=== PATIENT | male | born 1945 | race Caucasian/White ===

== ENCOUNTER 2017-04-10 14:44 | Emergency (ER) | payer MEDICARE ==
[~2017-04-10] VITALS: Ht 182.9 cm; Wt 97.5 kg
[~2017-04-10 14:44] MED LIST: ALBU90OI INH; ALBUTEROL; CEPH500 PO; CYCL10 PO; HYDACE10B PO; HYDACE5325 PO; IBUP600 PO; LIDO2L MM; MECL12.5 PO; NAPR500 PO; OMEP20ER PO; PANT40 PO; RANI150 PO; Robaxin-750750 MG PO; SUCR1 PO; TIOT18 IH; TOLN1TC TOP; Ventolin/Prove6.7 GM INH
[2017-04-10] MEDS ORDERED: Norco 5-325 Ta1 EACH PO (15:05)
== END 2017-04-10 15:09 | disposition home or self-care (01) ==
LOC: ER 14:44
DX: M54.10 Radiculopathy, site unspecified (principal); Z79.899 Other long term (current) drug therapy; J44.9 Chronic obstructive pulmonary disease, unspecified; Z87.891 Personal history of nicotine dependence
CPT/HCPCS: 99282

== ENCOUNTER 2018-10-20 21:27 | Emergency (ER) | payer MEDICARE ==
[~2018-10-20] VITALS: Ht 182.9 cm; Wt 94.3 kg
[~2018-10-20 21:27] MED LIST changes: +Norco 5-325 Ta1 EACH PO
[2018-10-20] MEDS ORDERED: [UNRECOGNIZED DRUG - REMARK] (22:13)
[2018-10-20] MEDS ORDERED: ACETAMINOPHEN500 MG PO (22:59)
== END 2018-10-20 23:06 | disposition home or self-care (01) ==
LOC: ER 21:27
DX: M54.6 Pain in thoracic spine (principal); Z87.891 Personal history of nicotine dependence; J44.9 Chronic obstructive pulmonary disease, unspecified; Z79.899 Other long term (current) drug therapy
CPT/HCPCS: 36415; 72070; 84484; 85379; 96372; 99283-25; J1885

== ENCOUNTER 2019-05-24 19:44 | Day surgery (SDC) | payer OTHER, MEDICARE ==
[~2019-05-24] VITALS: Ht 182.9 cm; Wt 86.6 kg
[~2019-05-24 19:44] MED LIST changes: +ACETAMINOPHEN500 MG PO; +[UNRECOGNIZED DRUG - REMARK]
[2019-05-24] MEDS ORDERED: ALBU90OI INH (19:49)
[2019-05-24 20:20] LABS: BASOPHILS ABSOLUTE AUTO 0.08 K/mm3 (0.00-0.23); BASOPHILS PERCENT AUTO 1 % (0-2); EOSINOPHILS ABSOLUTE AUTO 0.19 K/mm3 (0.00-0.68); EOSINOPHILS PERCENT AUTO 2 % (0-6); Hematocrit 61.5 % (37.0-53.0); Hemoglobin 20.2 g/dL (13.5-17.5); IMMATURE GRAN ABSOLUTE AUTO 0.03 K/mm3 (0.00-0.10); IMMATURE GRAN PERCENT AUTO 0 % (0-1); LYMPHOCYTES ABSOLUTE AUTO 1.02 K/mm3 (0.84-5.20); LYMPHOCYTES PERCENT AUTO 10 % (21-46); MONOCYTES ABSOLUTE AUTO 0.91 K/mm3 (0.16-1.47); MONOCYTES PERCENT AUTO 9 % (4-13); Mean Corpuscular HGB 31.3 pg (26.0-34.0); Mean Corpuscular HGB Conc 32.8 g/dL (31.5-36.5); Mean Corpuscular Volume 95 fL (80-100); Mean Platelet Volume 10.8 fL (9.1-12.4); NEUTROPHILS ABSOLUTE AUTO 8.07 K/mm3 (1.96-9.15); NEUTROPHILS PERCENT AUTO 78 % (41-73); Platelet Count 179 K/mm3 (150-400); RDW Coefficient Variation 13.4 % (11.7-14.2); RDW Standard Deviation 47.8 fL (35.1-46.3); Red Blood Cell Count 6.46 M/mm3 (4.30-5.90)
[2019-05-24 20:32] LABS: Alanine Aminotransfer (ALT/SGP 30 U/L (12-78); Albumin, Blood 4.1 g/dL (3.4-5.0); Albumin/Globulin Ratio 0.9 (0.8-1.8); Alk Phos 81 U/L (50-136); Anion Gap 5 mmol/L (6-16); Aspartate Aminotrans (AST/SGOT 39 U/L (12-37); Bilirubin, Total 2.4 mg/dL (0.1-1.0); Blood Urea Nitrogen 21 mg/dL (8-24); Bun/Creatinine Ratio 21.8 (12.0-20.0); CO2, Blood 25 mmol/L (21-32); Calcium, Blood 9.3 mg/dL (8.5-10.1); Chloride, Blood 106 mmol/L (98-108); Creatinine, Blood 0.96 mg/dL (0.60-1.20); Globulin, Blood 4.6 g/dL (2.2-4.0); Glomerular Filtration Rate >60 (60-); Glucose, Blood 74 mg/dL (70-99); Potassium, Blood 5.6 mmol/L (3.5-5.5); Sodium, Blood 136 mmol/L (136-145); Total Protein, Blood 8.7 g/dL (6.4-8.2)
--- NOTE | 2019-05-24 22:22 | NUR ---
05/24/192221 MJ THOMAS History, Chart, Medications and Allergies reviewed before start of procedure. 3-LEAD EKG REVIEWED WITH PHYSICIAN PRIOR TO START OF PROCEDURE. MONITOR INTACT WITH CONTINUOUS PULSE OXIMETRY AND INTERMITTENT BP. O2 VIA N/C INTACT THROUGHOUT SEDATION/PROCEDURE. GENERAL WITH DR. DESAI.
--- NOTE | 2019-05-24 23:27 | NUR ---
DR. MEZA CONSULTING WITH PT.
--- NOTE | 2019-05-25 00:06 | NUR ---
[id number] Patient up to Ambulate independently. Gait steady. Discharge instructions reviewed with patient. Patient verbalizes understanding. Copy given to patient to take home. Discharged via wheelchair to private car for ride home.
== END 2019-05-24 23:57 | disposition home or self-care (01) ==
LOC: ER 19:44 → ORSCMMR 21:48
PROVIDERS: Emergency Medicine; Internal Medicine Gastroenterology
PROC: 0DC58ZZ Extirpation of Matter from Esophagus, Via Natural or Artificial Opening Endoscopic (ICD-10-PCS; principal; 2019-05-24 21:30)
PROC: 0D758ZZ Dilation of Esophagus, Via Natural or Artificial Opening Endoscopic (ICD-10-PCS; principal; 2019-05-24 21:30)
DX: T18.128A Food in esophagus causing other injury, initial encounter (principal); K22.2 Esophageal obstruction; K44.9 Diaphragmatic hernia without obstruction or gangrene; K25.9 Gastric ulcer, unspecified as acute or chronic, without hemorrhage or perforation; K26.9 Duodenal ulcer, unspecified as acute or chronic, without hemorrhage or perforation; K21.9 Gastro-esophageal reflux disease without esophagitis; G47.33 Obstructive sleep apnea (adult) (pediatric); J44.9 Chronic obstructive pulmonary disease, unspecified; Z99.81 Dependence on supplemental oxygen
CPT/HCPCS: 80053; 85025; 93005; 93010; 99284-25; J1100; J2370; J2405; J2704; J2710; J3010; J7120

== ENCOUNTER 2019-10-17 20:51 | Inpatient (IN) | payer OTHER, MEDICARE ==
[~2019-10-17] VITALS: Ht 182.9 cm; Wt 88.6 kg
[2019-10-17 21:28] LABS: BASOPHILS ABSOLUTE AUTO 0.07 K/mm3 (0.00-0.23); BASOPHILS PERCENT AUTO 1 % (0-2); EOSINOPHILS ABSOLUTE AUTO 0.27 K/mm3 (0.00-0.68); EOSINOPHILS PERCENT AUTO 4 % (0-6); Hematocrit 50.9 % (37.0-53.0); Hemoglobin 16.4 g/dL (13.5-17.5); IMMATURE GRAN ABSOLUTE AUTO 0.01 K/mm3 (0.00-0.10); IMMATURE GRAN PERCENT AUTO 0 % (0-1); LYMPHOCYTES ABSOLUTE AUTO 0.94 K/mm3 (0.84-5.20); LYMPHOCYTES PERCENT AUTO 13 % (21-46); MONOCYTES ABSOLUTE AUTO 0.77 K/mm3 (0.16-1.47); MONOCYTES PERCENT AUTO 11 % (4-13); Mean Corpuscular HGB 31.7 pg (26.0-34.0); Mean Corpuscular HGB Conc 32.2 g/dL (31.5-36.5); Mean Corpuscular Volume 99 fL (80-100); Mean Platelet Volume 11.5 fL (9.1-12.4); NEUTROPHILS ABSOLUTE AUTO 4.99 K/mm3 (1.96-9.15); NEUTROPHILS PERCENT AUTO 71 % (41-73); Platelet Count 116 K/mm3 (150-400); RDW Coefficient Variation 14.7 % (11.7-14.2); RDW Standard Deviation 54.4 fL (35.1-46.3); Red Blood Cell Count 5.17 M/mm3 (4.30-5.90); White Blood Cell Count 7.05 K/mm3 (4.00-11.30)
[2019-10-17 21:46] LABS: Alanine Aminotransfer (ALT/SGP 31 U/L (12-78); Albumin, Blood 3.4 g/dL (3.4-5.0); Albumin/Globulin Ratio 0.8 (0.8-1.8); Alk Phos 144 U/L (50-136); Anion Gap 8 mmol/L (6-16); Aspartate Aminotrans (AST/SGOT 44 U/L (12-37); Bilirubin, Total 1.9 mg/dL (0.1-1.0); Blood Urea Nitrogen 18 mg/dL (8-24); Bun/Creatinine Ratio 15.3 (12.0-20.0); CO2, Blood 20 mmol/L (21-32); Calcium, Blood 8.5 mg/dL (8.5-10.1); Chloride, Blood 113 mmol/L (98-108); Creatinine, Blood 1.18 mg/dL (0.60-1.20); Globulin, Blood 4.2 g/dL (2.2-4.0); Glomerular Filtration Rate >60 (60-); Glucose, Blood 88 mg/dL (70-99); Potassium, Blood 4.6 mmol/L (3.5-5.5); Sodium, Blood 141 mmol/L (136-145); Total Protein, Blood 7.6 g/dL (6.4-8.2); Troponin I <0.015 ng/mL (0.000-0.040)
[2019-10-17] MEDS ORDERED: BUDE.25 INH (22:48)
[2019-10-17] MEDS ORDERED: Vitamin D2000 UNIT PO (22:48)
[2019-10-17] MEDS ORDERED: ALBU3IS INH (22:48)
[2019-10-17] MEDS ORDERED: ALBU90OI INH (22:48)
[2019-10-17] MEDS ORDERED: CLARISPRAY9.9 M1 (22:49)
[2019-10-17] MEDS ORDERED: Q-Tussin100 MG/5 M (22:49)
[2019-10-17] MEDS ORDERED: HYDCOR10 PO (22:50)
[2019-10-17] MEDS ORDERED: FURO40 PO (22:50)
[2019-10-17] MEDS ORDERED: GABA300 PO (22:50)
[2019-10-17] MEDS ORDERED: Flomax0.4 MG PO (22:51)
[2019-10-17] MEDS ORDERED: ASMANEX220 MC8 INH (22:51)
[2019-10-17] MEDS ORDERED: Norco 5-325 Ta1 EACH PO (23:30)
[2019-10-18 05:19] LABS: Anion Gap 7 mmol/L (6-16); Blood Urea Nitrogen 18 mg/dL (8-24); Bun/Creatinine Ratio 15.3 (12.0-20.0); CO2, Blood 24 mmol/L (21-32); Calcium, Blood 8.4 mg/dL (8.5-10.1); Chloride, Blood 112 mmol/L (98-108); Creatinine, Blood 1.18 mg/dL (0.60-1.20); Glomerular Filtration Rate >60 (60-); Glucose, Blood 98 mg/dL (70-99); Potassium, Blood 3.9 mmol/L (3.5-5.5); Sodium, Blood 143 mmol/L (136-145)
[2019-10-18] MEDS ORDERED: Norco 10-325 T1 EACH PO (11:03)
[2019-10-18] MEDS ORDERED: STRIVERDI RESPIM4 G1 INH (11:05)
[2019-10-19 11:13] LABS: Anion Gap 3 mmol/L (6-16); Blood Urea Nitrogen 15 mg/dL (8-24); Bun/Creatinine Ratio 13.3 (12.0-20.0); CO2, Blood 33 mmol/L (21-32); Calcium, Blood 9.1 mg/dL (8.5-10.1); Chloride, Blood 104 mmol/L (98-108); Creatinine, Blood 1.13 mg/dL (0.60-1.20); Glomerular Filtration Rate >60 (60-); Glucose, Blood 124 mg/dL (70-99); Potassium, Blood 3.9 mmol/L (3.5-5.5); Sodium, Blood 140 mmol/L (136-145)
[2019-10-20 05:27] LABS: Anion Gap 6 mmol/L (6-16); Blood Urea Nitrogen 17 mg/dL (8-24); Bun/Creatinine Ratio 16.8 (12.0-20.0); CO2, Blood 30 mmol/L (21-32); Calcium, Blood 8.6 mg/dL (8.5-10.1); Chloride, Blood 104 mmol/L (98-108); Creatinine, Blood 1.01 mg/dL (0.60-1.20); Glomerular Filtration Rate >60 (60-); Glucose, Blood 110 mg/dL (70-99); Potassium, Blood 3.6 mmol/L (3.5-5.5); Sodium, Blood 140 mmol/L (136-145)
[2019-10-20] MEDS ORDERED: Q-Tussin100 MG/5 M PO (10:56)
[2019-10-20] MEDS ORDERED: TORSE20 PO (14:36)
== END 2019-10-20 14:48 | disposition home or self-care (01) | DRG 291 ==
LOC: ER 20:51 → MEDS 23:23
PROVIDERS: Hospitalist; Physician Assistant; ADMIT Internal Medicine
DX: I11.0 Hypertensive heart disease with heart failure (principal); J96.21 Acute and chronic respiratory failure with hypoxia; I50.31 Acute diastolic (congestive) heart failure; R18.8 Other ascites; J84.9 Interstitial pulmonary disease, unspecified; Z20.828 Contact with and (suspected) exposure to other viral communicable diseases; G47.33 Obstructive sleep apnea (adult) (pediatric); I07.1 Rheumatic tricuspid insufficiency; I27.20 Pulmonary hypertension, unspecified; J44.9 Chronic obstructive pulmonary disease, unspecified; K21.9 Gastro-esophageal reflux disease without esophagitis; Z87.891 Personal history of nicotine dependence; Z99.81 Dependence on supplemental oxygen; Z66 Do not resuscitate
CPT/HCPCS: 36415; 71045; 71260; 80048; 80053; 83880; 84484; 85025; 93005; 93010; 93306; 94640; 94660; 94760; 94762; 96374; 99285-25; J1650; J1940; Q9967

== ENCOUNTER 2020-03-29 11:05 | Emergency (ER) | payer OTHER, MEDICARE ==
[~2020-03-29] VITALS: Ht 182.9 cm; Wt 91.2 kg
[~2020-03-29 11:05] MED LIST changes: +AZIT250 PO; +BUDE.25 INH; +FURO40 PO; +GABA300 PO; +HYDCOR10 PO; +Q-Tussin100 MG/5 M; +Q-Tussin100 MG/5 M PO; +TORSE20 PO
[2020-03-29 11:35] LABS: BASOPHILS ABSOLUTE AUTO 0.07 K/mm3 (0.00-0.23); BASOPHILS PERCENT AUTO 1 % (0-2); EOSINOPHILS ABSOLUTE AUTO 0.24 K/mm3 (0.00-0.68); EOSINOPHILS PERCENT AUTO 3 % (0-6); Hematocrit 49.2 % (37.0-53.0); Hemoglobin 15.5 g/dL (13.5-17.5); IMMATURE GRAN ABSOLUTE AUTO 0.04 K/mm3 (0.00-0.10); IMMATURE GRAN PERCENT AUTO 1 % (0-1); LYMPHOCYTES ABSOLUTE AUTO 0.86 K/mm3 (0.84-5.20); LYMPHOCYTES PERCENT AUTO 11 % (21-46); MONOCYTES PERCENT AUTO 11 % (4-13); Mean Corpuscular HGB 32.6 pg (26.0-34.0); Mean Corpuscular HGB Conc 31.5 g/dL (31.5-36.5); Mean Corpuscular Volume 104 fL (80-100); Mean Platelet Volume 10.9 fL (9.1-12.4); NEUTROPHILS ABSOLUTE AUTO 5.88 K/mm3 (1.96-9.15); NEUTROPHILS PERCENT AUTO 74 % (41-73); Platelet Count 111 K/mm3 (150-400); RDW Coefficient Variation 14.8 % (11.7-14.2); RDW Standard Deviation 57.8 fL (35.1-46.3); Red Blood Cell Count 4.75 M/mm3 (4.30-5.90); White Blood Cell Count 7.99 K/mm3 (4.00-11.30)
[2020-03-29 11:52] LABS: Alanine Aminotransfer (ALT/SGP 21 U/L (12-78); Albumin, Blood 3.2 g/dL (3.4-5.0); Albumin/Globulin Ratio 0.7 (0.8-1.8); Alk Phos 200 U/L (50-136); Anion Gap 7 mmol/L (6-16); Aspartate Aminotrans (AST/SGOT 36 U/L (12-37); Bilirubin, Total 2.8 mg/dL (0.1-1.0); Blood Urea Nitrogen 18 mg/dL (8-24); Bun/Creatinine Ratio 17.5 (12.0-20.0); CO2, Blood 25 mmol/L (21-32); Chloride, Blood 111 mmol/L (98-108); Creatinine, Blood 1.03 mg/dL (0.60-1.20); Globulin, Blood 4.3 g/dL (2.2-4.0); Glomerular Filtration Rate >60 (60-); Glucose, Blood 80 mg/dL (70-99); Potassium, Blood 4.9 mmol/L (3.5-5.5); Sodium, Blood 143 mmol/L (136-145); Total Protein, Blood 7.5 g/dL (6.4-8.2); Troponin I <0.015 ng/mL (0.000-0.040)
[2020-06-26] MEDS ORDERED: VITAMIN D31000 UNI1 PO (14:10)
[2020-06-26] MEDS ORDERED: Viagra100 MG PO (14:11)
== END 2020-03-29 14:04 | disposition home or self-care (01) ==
LOC: ER 11:05
PROVIDERS: Emergency Medicine
DX: R06.00 Dyspnea, unspecified (principal); J44.9 Chronic obstructive pulmonary disease, unspecified; I50.9 Heart failure, unspecified; Z79.899 Other long term (current) drug therapy; Z87.891 Personal history of nicotine dependence
CPT/HCPCS: 71046; 80053; 83880; 84484; 85025; 93005; 93010; 99285-25

== ENCOUNTER 2020-05-02 18:06 | Inpatient (IN) | payer OTHER, MEDICARE ==
[~2020-05-02] VITALS: Ht 182.9 cm; Wt 83.1 kg
[2020-05-02 18:40] LABS: PCO2 Arterial 33.6 mmHg (35-45); PO2 Arterial 58.7 mmHg (80-100); pH Blood Arterial 7.46 (7.35-7.45)
[2020-05-02 18:52] LABS: BASOPHILS ABSOLUTE AUTO 0.07 K/mm3 (0.00-0.23); BASOPHILS PERCENT AUTO 1 % (0-2); EOSINOPHILS ABSOLUTE AUTO 0.28 K/mm3 (0.00-0.68); EOSINOPHILS PERCENT AUTO 3 % (0-6); Hematocrit 45.7 % (37.0-53.0); Hemoglobin 14.6 g/dL (13.5-17.5); IMMATURE GRAN ABSOLUTE AUTO 0.03 K/mm3 (0.00-0.10); IMMATURE GRAN PERCENT AUTO 0 % (0-1); LYMPHOCYTES ABSOLUTE AUTO 0.83 K/mm3 (0.84-5.20); LYMPHOCYTES PERCENT AUTO 9 % (21-46); MONOCYTES ABSOLUTE AUTO 1.19 K/mm3 (0.16-1.47); MONOCYTES PERCENT AUTO 13 % (4-13); Mean Corpuscular HGB 32.8 pg (26.0-34.0); Mean Corpuscular HGB Conc 31.9 g/dL (31.5-36.5); Mean Corpuscular Volume 103 fL (80-100); Mean Platelet Volume 10.8 fL (9.1-12.4); NEUTROPHILS ABSOLUTE AUTO 7.07 K/mm3 (1.96-9.15); NEUTROPHILS PERCENT AUTO 75 % (41-73); Platelet Count 159 K/mm3 (150-400); Red Blood Cell Count 4.45 M/mm3 (4.30-5.90); White Blood Cell Count 9.47 K/mm3 (4.00-11.30)
[2020-05-02 19:01] LABS: Alanine Aminotransfer (ALT/SGP 26 U/L (12-78); Albumin, Blood 3.3 g/dL (3.4-5.0); Albumin/Globulin Ratio 0.8 (0.8-1.8); Alk Phos 251 U/L (50-136); Anion Gap 4 mmol/L (6-16); Aspartate Aminotrans (AST/SGOT 27 U/L (12-37); Bilirubin, Total 3.1 mg/dL (0.1-1.0); Blood Urea Nitrogen 15 mg/dL (8-24); Bun/Creatinine Ratio 15.3 (12.0-20.0); CO2, Blood 28 mmol/L (21-32); Calcium, Blood 8.6 mg/dL (8.5-10.1); Chloride, Blood 109 mmol/L (98-108); Creatinine, Blood 0.98 mg/dL (0.60-1.20); Globulin, Blood 4.3 g/dL (2.2-4.0); Glomerular Filtration Rate >60 (60-); Glucose, Blood 68 mg/dL (70-99); Potassium, Blood 4.2 mmol/L (3.5-5.5); Sodium, Blood 141 mmol/L (136-145); Total Protein, Blood 7.6 g/dL (6.4-8.2); Troponin I <0.015 ng/mL (0.000-0.040)
[2020-05-02] MEDS ORDERED: ATHLETE'S FOO35.4 GM TOP (20:42)
[2020-05-02] MEDS ORDERED: Norco 10-325 T1 EACH PO (20:43)
[2020-05-02] MEDS ORDERED: GUAI600T33 PO (20:46)
[2020-05-02] MEDS ORDERED: ALBU2.5V5 NEB (20:47)
[2020-05-02] MEDS ORDERED: ALBU90OI INH (20:48)
[2020-05-02] MEDS ORDERED: ASMANEX220 MC8 INH (20:48)
[2020-05-02] MEDS ORDERED: STIOLTO RESPIMAT4 G1 INH (20:49)
[2020-05-02] MEDS ORDERED: TORSE20 PO (20:50)
[2020-05-02] MEDS ORDERED: CLARISPRAY9.9 M1 (20:51)
[2020-05-02] MEDS ORDERED: Vitamin D2000 UNIT PO (20:51)
[2020-05-02] MEDS ORDERED: Flomax0.4 MG PO (20:53)
[2020-05-02] MEDS ORDERED: Viagra100 MG PO (20:53)
[2020-05-02 22:29] LABS: Influenza A, PCR NEGATIVE (NEGATIVE); Influenza B, PCR NEGATIVE (NEGATIVE); Resp Syncytial Virus, PCR NEGATIVE (NEGATIVE); SARS-Cov-2 (COVID-19) PCR, MMC NEGATIVE (NEGATIVE)
[2020-05-03 04:08] LABS: BASOPHILS ABSOLUTE AUTO 0.05 K/mm3 (0.00-0.23); BASOPHILS PERCENT AUTO 1 % (0-2); EOSINOPHILS PERCENT AUTO 4 % (0-6); Hematocrit 42.2 % (37.0-53.0); Hemoglobin 13.5 g/dL (13.5-17.5); IMMATURE GRAN ABSOLUTE AUTO 0.02 K/mm3 (0.00-0.10); IMMATURE GRAN PERCENT AUTO 0 % (0-1); LYMPHOCYTES ABSOLUTE AUTO 0.84 K/mm3 (0.84-5.20); LYMPHOCYTES PERCENT AUTO 10 % (21-46); MONOCYTES PERCENT AUTO 15 % (4-13); Mean Corpuscular Volume 100 fL (80-100); NEUTROPHILS ABSOLUTE AUTO 5.78 K/mm3 (1.96-9.15); NEUTROPHILS PERCENT AUTO 71 % (41-73); Platelet Count 142 K/mm3 (150-400); RDW Coefficient Variation 15.1 % (11.7-14.2); RDW Standard Deviation 55.6 fL (35.1-46.3); Red Blood Cell Count 4.22 M/mm3 (4.30-5.90); White Blood Cell Count 8.19 K/mm3 (4.00-11.30)
[2020-05-03 04:23] LABS: Anion Gap 5 mmol/L (6-16); Blood Urea Nitrogen 14 mg/dL (8-24); Bun/Creatinine Ratio 13.1 (12.0-20.0); CO2, Blood 30 mmol/L (21-32); Calcium, Blood 8.4 mg/dL (8.5-10.1); Chloride, Blood 107 mmol/L (98-108); Creatinine, Blood 1.07 mg/dL (0.60-1.20); Glomerular Filtration Rate >60 (60-); Glucose, Blood 83 mg/dL (70-99); Potassium, Blood 3.9 mmol/L (3.5-5.5); Sodium, Blood 142 mmol/L (136-145)
--- NOTE | 2020-05-03 06:12 | NUR ---
SHIFT SUMMARY PT TO UNIT FROM ED. AXO. IN SR 80'S. LUNG SOUNDS CLEAR WITH SOME MOIST SOUNDS SCATTERED AND FAINT. PT RECEIVED LARGE DOSE OF DIURETICS IN [facility], URINE OUTPUT SUPPORTS THIS. PT ON HOME CPAP, TO MAINTAIN SPO2>90%, 02 INFLOW EVENTUALLY HAD TO BE TITRATED UP TO 15L. NO CHANGE IN LUNG SOUNDS NOTED. NO INCREASED SOB OR OTHER WORRYING S/SX. RT AWARE. PT CONTINENT. ADMISSION COMPLETE EXCEPT MED REC, PT UNAWARE OF MEDICATIONS. BILAT LEGS EDEMATOUS, REDNESS EXTENDING FROM FEET TO LOWER ABD. EDEMA NOTED ALL THE WAY UP INTO LOWER BACK. PT STATES THIS IS STARTING TO IMPROVE SLOWLY, STATES RESPIRATORY STATUS HAS MUCH IMPROVED SINCE COMING FROM [facility]. OTHERWISE, PT USING CALL LIGHT APPROPIATELY. WILL CONTINUE TO MONITOR UNTIL SHIUFT CHANGE.
--- NOTE | 2020-05-03 11:43 | NUR ---
Spoke with Dr Hastings and Dr Culp prior to Pt visit. Pt would benefit from supportive visit and discussion regarding AD/POLST. Pt resting in bed and reports mild pain in his lower back. Pt reports dyspnea has improved since being admitted to hospital. Pt reports living at home with his daughter. Daughter is supportive of needs. Engaged in therapeutic discussion regarding the importance of considering competing AD/POLST. Educated on life sustaining measures including risk factors and implications. Educated on each section to complete. Provided gentle education on the importance of compliance with medications. Gentle education on the importance of weighing self each day. Provided AD and POLST with Pt reporting he will consider completing. No other concerns reported at this time. Palliative Care will remain available.
[2020-05-03 15:16] LABS: Anion Gap 7 mmol/L (6-16); Blood Urea Nitrogen 16 mg/dL (8-24); Bun/Creatinine Ratio 13.6 (12.0-20.0); CO2, Blood 31 mmol/L (21-32); Calcium, Blood 8.5 mg/dL (8.5-10.1); Chloride, Blood 101 mmol/L (98-108); Creatinine, Blood 1.18 mg/dL (0.60-1.20); Glomerular Filtration Rate >60 (60-); Glucose, Blood 106 mg/dL (70-99); Magnesium, Blood 2.2 mg/dL (1.6-2.4); Potassium, Blood 3.5 mmol/L (3.5-5.5); Sodium, Blood 139 mmol/L (136-145)
--- NOTE | 2020-05-03 18:39 | NUR ---
SHIFT SUMMARY NO ACUTE EVENTS THIS SHIFT, PATIENT ALERT AND ORIENTED, COOPERATIVE WITH CARE. PATIENT ON 5 L NASAL CANNULA T/O SHIFT, O2 SATS MAINTAINING LOW 90S, WILL DROP TO MID-HIGH 80S WITH EXTENDED TALKING OR WHILE EATING. PATIENT COUGHED WHEN EATING DINNER TONIGHT, MECHANICAL SOFT TRAY PROVIDED TO PATIENT. STANDING WEIGHT AND 1500 L FLUID RESTRICTION FOLLOWED THIS SHIFT. SBA TO BEDSIDE COMMODE. PLAN IS FOR CONTINUED IV DIURESIS. BLE EDEMA AND REDNESS NOTED.
[2020-05-04 04:32] LABS: Anion Gap 7 mmol/L (6-16); Blood Urea Nitrogen 19 mg/dL (8-24); CO2, Blood 30 mmol/L (21-32); Calcium, Blood 8.2 mg/dL (8.5-10.1); Chloride, Blood 102 mmol/L (98-108); Creatinine, Blood 1.12 mg/dL (0.60-1.20); Glomerular Filtration Rate >60 (60-); Glucose, Blood 99 mg/dL (70-99); Potassium, Blood 3.4 mmol/L (3.5-5.5); Sodium, Blood 139 mmol/L (136-145)
--- NOTE | 2020-05-04 05:23 | NUR ---
SHIFT SUMMARY NO ACUTE CHANGES THIS SHIFT. VSS WITH STABLE HOTN. PT AXO, IN SR. ON 4-6L NC. PT HAS POOR PERFUSION TO HANDS SO FOREHEAD PROBE BEING USED NOW FOR ACCURATE SO2 CONTINUOUS MONITORING. PT REMAINING WITHIN 1500ML FLUID RESTRICTION. PT VOIDING LARGE AMOUNTS STILL. OTHERWISE, PT RESTING OFF AND ON IN ROOM. USES CALL LIGHT APPROPRIATELY. WILL CONTINUE TO MONITOR UNTIL SHIFT CHANGE.
--- NOTE | 2020-05-04 18:16 | NUR ---
SHIFT SUMMARY NO ACUTE EVENTS THIS SHIFT, VSS. PATIENT IS ALERT AND ORIENTED, COOPERATIVE WITH CARE. IV DIURESIS CONTINUED THIS SHIFT, STANDING WEIGHT DOCUMENTED IN CHART. PATIENT UP WITH PT/OT. ON 4-6 L THIS SHIFT, MAINTAINED O2 SATS IN 90S EXCEPT FOR DURING NAPS APNEIC BREATHING PATTERN NOTED WITH O2 SATURATION DROP TO 80S. WHEN AWAKENED PATIENT WOULD RETURN TO 90S O2 SAT. IV DIURESIS CONTINUED THIS SHIFT.
[2020-05-05 04:15] LABS: Anion Gap 6 mmol/L (6-16); Blood Urea Nitrogen 19 mg/dL (8-24); Bun/Creatinine Ratio 17.8 (12.0-20.0); CO2, Blood 32 mmol/L (21-32); Calcium, Blood 8.1 mg/dL (8.5-10.1); Chloride, Blood 100 mmol/L (98-108); Creatinine, Blood 1.07 mg/dL (0.60-1.20); Glomerular Filtration Rate >60 (60-); Glucose, Blood 90 mg/dL (70-99); Potassium, Blood 3.6 mmol/L (3.5-5.5); Sodium, Blood 138 mmol/L (136-145)
--- NOTE | 2020-05-05 05:48 | NUR ---
SHIFT SUMMARY NO ACUTE CHANGES THIS SHIFT. VSS. REMAINS AXO. IN SR. ON 4-6L OR CPAP. PT REMAINS WITHIN 1500ML FLUID RESTRICTION. LEGS CONTINUE TO SHOW DECREASING EDEMA BILATERALLY. LUNG SOUNDS CLEAR T/O WITH SOME UPPER LOBE EXP WHEEZING NOTED. OTHERWISE, PT IN ROOM SLEEPING OFF AND ON. WILL CONTINUE TO MONITOR UNTIL SHIFT CHAGE.
--- NOTE | 2020-05-05 18:03 | NUR ---
SHIFT SUMMARY PT ALERT AND ORIENTED. VS STABLE. O2 SATS HAVE REMAINED ABOVE 90% AND O2 TITRATED TO 4L WHICH IS HIS BASELINE. BP STABLE. HR NSR. PT DENIES ANY PAIN. PT ABLE TO AMBULATE IN HIS ROOM INDEPENDENTLY. WILL CONTINUE TO MONITOR AND REPORT TO ONCOMING RN. CALL LIGHT IN REACH.
--- NOTE | 2020-05-05 20:01 | NUR ---
ASSUMED CARE PT IS ALERT AND ORIENTED. VITALS ARE STABLE. SATS >92% AT 4L NC. DENIES PAIN AND SOB. PT TALIKING ON PHONE. URINAL AND CALL LIGHT AT BESIDE. WILL CONTINUE TO MONITOR.
[2020-05-06 04:21] LABS: Anion Gap 4 mmol/L (6-16); Blood Urea Nitrogen 17 mg/dL (8-24); Bun/Creatinine Ratio 16.3 (12.0-20.0); CO2, Blood 34 mmol/L (21-32); Calcium, Blood 8.6 mg/dL (8.5-10.1); Chloride, Blood 100 mmol/L (98-108); Creatinine, Blood 1.04 mg/dL (0.60-1.20); Glomerular Filtration Rate >60 (60-); Glucose, Blood 95 mg/dL (70-99); Magnesium, Blood 2.1 mg/dL (1.6-2.4); Potassium, Blood 3.6 mmol/L (3.5-5.5); Sodium, Blood 138 mmol/L (136-145)
--- NOTE | 2020-05-06 07:17 | NUR ---
PT ALERT AND ORIENTED. NO ACUTE CHANGES; ADLIB IN ROOM. 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 USES URINAL IN THE BEDSIDE. PT ON 4L NC WITH SATS OF >92%.
--- NOTE | 2020-05-06 08:00 | NUR ---
pt laying in bed awake a/ox3, pleasant and cooperative with care, follows commands well, denies complaints of pain, lungs are dim in bases with some wheezing noted t/o, resp even and unlabored, no cough noted, is currently on 6 liters 02 via n/c, is a home o2 user on 4 liters at all times, hrr, tele in place running sr per monitor, see strip, trace edema noted to b/l le, ppp faint, cap refill <3sec, vs stable, afebrile, iv site is clear and patent, btx4, abd flat soft nontender, voids benigno clear urine via urinal, skin c/w/d, but is red and very dry to b/l alexandr medellin, call light in reach.
[2020-05-06] MEDS ORDERED: DOK100 M2 PO (16:16)
[2020-05-06] MEDS ORDERED: BUME2 PO (16:21)
--- NOTE | 2020-05-06 16:43 | NUR ---
PT HAS BEEN DISCHARGED TO HOME, NEW MEDICATION FAXED TO [facility], AND ENOUGH MEDS TO GET THROUGH THE WEEKEND WAS CALLED INTO [facility] IN [place], IV REMOVED INTACT, O2 WAS BROUGHT TO ROOM AND JP WILL MEET HIM AT HIS HOUSE FOR INCREASED 02 NEEDS. WENT OVER DISCHARGE INSTRUCTIONS, HE VERBALIZED UNDERSTANDING. LEFT VIA WHEELCHAIR WITH GATEKEEPER IN ATTENDENC WITH ALL HIS BELONGINGS.
[2020-06-26] MEDS ORDERED: VITAMIN D31000 UNI1 PO (14:10)
[2020-06-26] MEDS ORDERED: Viagra100 MG PO (14:11)
== END 2020-05-06 16:34 | disposition home or self-care (01) | DRG 291 ==
LOC: ER 18:06 → PCU 18:07 → ERHOLD 18:07 → PCU 23:00
PROVIDERS: Emergency Medicine; Family Medicine; Nurse Practitioner Acute Care; ADMIT Internal Medicine
PROC: 5A09357 Assistance with Respiratory Ventilation, Less than 24 Consecutive Hours, Continuous Positive Airway Pressure (ICD-10-PCS; principal; 2020-05-03)
DX: I11.0 Hypertensive heart disease with heart failure (principal); J96.21 Acute and chronic respiratory failure with hypoxia; J44.9 Chronic obstructive pulmonary disease, unspecified; Z91.19 Patient's noncompliance with other medical treatment and regimen; I50.33 Acute on chronic diastolic (congestive) heart failure; E87.6 Hypokalemia; K21.9 Gastro-esophageal reflux disease without esophagitis; I87.2 Venous insufficiency (chronic) (peripheral); Z79.899 Other long term (current) drug therapy; Z99.81 Dependence on supplemental oxygen; G47.33 Obstructive sleep apnea (adult) (pediatric); Z98.890 Other specified postprocedural states; Z87.891 Personal history of nicotine dependence; Z20.822 Contact with and (suspected) exposure to COVID-19
CPT/HCPCS: 0241U; 36415; 36600; 71045; 71046; 80048; 80053; 82803; 83735; 83880; 84484; 85025; 93005; 93010; 94640; 94644; 94667; 94668; 94760; 94761; 94762; 96372; 96374; 97110; 97116; 97129; 97130; 97162; 97165; 97530; 99285-25; A9270; G0378; J1650

== ENCOUNTER 2020-07-19 22:36 | Emergency (ER) | payer OTHER, MEDICARE ==
[~2020-07-19] VITALS: Ht 182.9 cm; Wt 77.1 kg
[~2020-07-19 22:36] MED LIST changes: +ALBU2.5V5 NEB; +ASMANEX220 MC8 INH; +ATHLETE'S FOO35.4 GM TOP; +BUME2 PO; +CLARISPRAY9.9 M1; +DOK100 M2 PO; +Flomax0.4 MG PO; +GUAI600T33 PO; +Norco 10-325 T1 EACH PO; +STIOLTO RESPIMAT4 G1 INH; +VITAMIN D31000 UNI1 PO; +Viagra100 MG PO; +Vitamin D2000 UNIT PO
[2020-07-20] MEDS ORDERED: FURO20 (01:15)
== END 2020-07-20 02:25 | disposition home or self-care (01) ==
LOC: ER 22:36
DX: R13.10 Dysphagia, unspecified (principal); J44.9 Chronic obstructive pulmonary disease, unspecified; I50.9 Heart failure, unspecified; K21.9 Gastro-esophageal reflux disease without esophagitis; Z79.899 Other long term (current) drug therapy; Z87.891 Personal history of nicotine dependence
CPT/HCPCS: 99283

== ENCOUNTER 2020-07-20 16:03 | Emergency (ER) | payer OTHER, MEDICARE ==
[~2020-07-20] VITALS: Ht 182.9 cm; Wt 76.2 kg
[~2020-07-20 16:03] MED LIST changes: +FURO20
--- NOTE | 2020-07-20 20:11 | NUR ---
07/20/202010 Victor Hugo Ansari History, Chart, Medications and Allergies reviewed before start of procedure.MONITOR INTACT WITH CONTINUOUS PULSE OXIMETRY AND INTERMITTENT BP.3-LEAD EKG REVIEWED WITH PHYSICIAN PRIOR TO START OF PROCEDURE.O2 VIA N/C INTACT THROUGHOUT SEDATION/PROCEDURE. See Anesthesia record DR. DOLAN.
[2020-07-20 20:27] LABS: SARS-Cov-2 (COVID-19) PCR, MMC NEGATIVE (NEGATIVE)
--- NOTE | 2020-07-20 21:23 | NUR ---
Patient up to Ambulate independently. Gait steady. Discharge instructions reviewed with patient. Patient verbalizes understanding. Copy given to patient to take home. Spoke with Rosenda, friend. Reviewed discharge instructions with her. Patient States Post-Procedure ride home has been arranged with Rosenda Discharged via wheelchair to private car for ride home.
== END 2020-07-20 19:20 | disposition other institution (70) ==
LOC: ER 16:03
PROVIDERS: Physician Assistant
DX: T17.228A Food in pharynx causing other injury, initial encounter (principal); I50.9 Heart failure, unspecified; K21.9 Gastro-esophageal reflux disease without esophagitis; Z87.19 Personal history of other diseases of the digestive system; Z20.822 Contact with and (suspected) exposure to COVID-19; Z87.891 Personal history of nicotine dependence
CPT/HCPCS: 88305; 88342; 96374-59; 99284-25; J1610; J2704; J7120; U0004

== ENCOUNTER 2020-08-06 17:28 | Emergency (ER) | payer OTHER, MEDICARE ==
[~2020-08-06] VITALS: Ht 182.9 cm; Wt 72.6 kg
== END 2020-08-07 00:29 | disposition home or self-care (01) ==
LOC: ER 17:28
DX: T18.128A Food in esophagus causing other injury, initial encounter (principal); J44.9 Chronic obstructive pulmonary disease, unspecified; I50.9 Heart failure, unspecified; K21.9 Gastro-esophageal reflux disease without esophagitis; Z79.899 Other long term (current) drug therapy; Z87.891 Personal history of nicotine dependence
CPT/HCPCS: 99283

== ENCOUNTER 2020-08-11 11:50 | Day surgery (SDC) | payer OTHER ==
[~2020-08-11] VITALS: Ht 182.9 cm; Wt 83.2 kg
--- NOTE | 2020-08-11 12:39 | NUR ---
08/11/20 Janie Baldwin 1 TRY RIGHT UPPER ARM NO FLASH
== END 2020-08-11 14:12 | disposition home or self-care (01) ==
LOC: ORSCSDS 11:50
PROVIDERS: Internal Medicine Gastroenterology
PROC: 0D758ZZ Dilation of Esophagus, Via Natural or Artificial Opening Endoscopic (ICD-10-PCS; principal; 2020-08-11 14:15)
PROC: 0DB78ZX Excision of Stomach, Pylorus, Via Natural or Artificial Opening Endoscopic, Diagnostic (ICD-10-PCS; principal; 2020-08-11 14:15)
DX: R13.10 Dysphagia, unspecified (principal); K22.2 Esophageal obstruction; K44.9 Diaphragmatic hernia without obstruction or gangrene; K21.9 Gastro-esophageal reflux disease without esophagitis; K29.70 Gastritis, unspecified, without bleeding; I25.10 Atherosclerotic heart disease of native coronary artery without angina pectoris; I10 Essential (primary) hypertension; G47.33 Obstructive sleep apnea (adult) (pediatric); J44.9 Chronic obstructive pulmonary disease, unspecified; F17.210 Nicotine dependence, cigarettes, uncomplicated; Z99.81 Dependence on supplemental oxygen; Z79.899 Other long term (current) drug therapy
CPT/HCPCS: 88305; 88342; C1726; J2704; J7120

== ENCOUNTER 2020-08-29 15:09 | Inpatient (IN) | payer OTHER ==
[~2020-08-29] VITALS: Ht 182.9 cm; Wt 82.2 kg
[2020-08-29 15:46] LABS: BASOPHILS ABSOLUTE AUTO 0.06 K/mm3 (0.00-0.23); BASOPHILS PERCENT AUTO 1 % (0-2); EOSINOPHILS ABSOLUTE AUTO 0.36 K/mm3 (0.00-0.68); EOSINOPHILS PERCENT AUTO 5 % (0-6); Hematocrit 45.5 % (37.0-53.0); IMMATURE GRAN ABSOLUTE AUTO 0.04 K/mm3 (0.00-0.10); IMMATURE GRAN PERCENT AUTO 1 % (0-1); LYMPHOCYTES ABSOLUTE AUTO 0.82 K/mm3 (0.84-5.20); LYMPHOCYTES PERCENT AUTO 11 % (21-46); MONOCYTES ABSOLUTE AUTO 0.91 K/mm3 (0.16-1.47); MONOCYTES PERCENT AUTO 12 % (4-13); Mean Corpuscular HGB 33.3 pg (26.0-34.0); Mean Corpuscular Volume 101 fL (80-100); Mean Platelet Volume 11.1 fL (9.1-12.4); NEUTROPHILS ABSOLUTE AUTO 5.38 K/mm3 (1.96-9.15); NEUTROPHILS PERCENT AUTO 71 % (41-73); Platelet Count 130 K/mm3 (150-400); RDW Coefficient Variation 14.6 % (11.7-14.2); RDW Standard Deviation 54.3 fL (35.1-46.3); White Blood Cell Count 7.57 K/mm3 (4.00-11.30)
[2020-08-29 15:58] LABS: Alanine Aminotransfer (ALT/SGP 24 U/L (12-78); Albumin, Blood 3.2 g/dL (3.4-5.0); Albumin/Globulin Ratio 0.7 (0.8-1.8); Alk Phos 256 U/L (50-136); Anion Gap 6 mmol/L (6-16); Aspartate Aminotrans (AST/SGOT 30 U/L (12-37); Bilirubin, Total 2.3 mg/dL (0.1-1.0); Blood Urea Nitrogen 27 mg/dL (8-24); Bun/Creatinine Ratio 28.8 (12.0-20.0); CO2, Blood 22 mmol/L (21-32); Calcium, Blood 8.3 mg/dL (8.5-10.1); Chloride, Blood 112 mmol/L (98-108); Creatinine, Blood 0.94 mg/dL (0.60-1.20); Globulin, Blood 4.5 g/dL (2.2-4.0); Glomerular Filtration Rate >60 (60-); Glucose, Blood 75 mg/dL (70-99); Potassium, Blood 4.5 mmol/L (3.5-5.5); Sodium, Blood 140 mmol/L (136-145); Total Protein, Blood 7.7 g/dL (6.4-8.2); Troponin I <0.015 ng/mL (0.000-0.040)
[2020-08-29] MEDS ORDERED: OMEP20ER PO (18:10)
[2020-08-30 04:19] LABS: BASOPHILS ABSOLUTE AUTO 0.08 K/mm3 (0.00-0.23); BASOPHILS PERCENT AUTO 1 % (0-2); EOSINOPHILS ABSOLUTE AUTO 0.41 K/mm3 (0.00-0.68); EOSINOPHILS PERCENT AUTO 5 % (0-6); Hematocrit 43.2 % (37.0-53.0); Hemoglobin 14.2 g/dL (13.5-17.5); IMMATURE GRAN ABSOLUTE AUTO 0.03 K/mm3 (0.00-0.10); IMMATURE GRAN PERCENT AUTO 0 % (0-1); LYMPHOCYTES ABSOLUTE AUTO 0.75 K/mm3 (0.84-5.20); LYMPHOCYTES PERCENT AUTO 10 % (21-46); MONOCYTES ABSOLUTE AUTO 0.94 K/mm3 (0.16-1.47); MONOCYTES PERCENT AUTO 12 % (4-13); Mean Corpuscular HGB 33.4 pg (26.0-34.0); Mean Corpuscular HGB Conc 32.9 g/dL (31.5-36.5); Mean Corpuscular Volume 102 fL (80-100); Mean Platelet Volume 10.7 fL (9.1-12.4); NEUTROPHILS ABSOLUTE AUTO 5.44 K/mm3 (1.96-9.15); NEUTROPHILS PERCENT AUTO 71 % (41-73); Platelet Count 111 K/mm3 (150-400); RDW Coefficient Variation 14.6 % (11.7-14.2); RDW Standard Deviation 54.4 fL (35.1-46.3); Red Blood Cell Count 4.25 M/mm3 (4.30-5.90); White Blood Cell Count 7.65 K/mm3 (4.00-11.30)
[2020-08-30 05:00] LABS: Alanine Aminotransfer (ALT/SGP 22 U/L (12-78); Albumin, Blood 2.9 g/dL (3.4-5.0); Albumin/Globulin Ratio 0.7 (0.8-1.8); Alk Phos 244 U/L (50-136); Anion Gap 6 mmol/L (6-16); Aspartate Aminotrans (AST/SGOT 24 U/L (12-37); Blood Urea Nitrogen 30 mg/dL (8-24); Bun/Creatinine Ratio 29.4 (12.0-20.0); CO2, Blood 25 mmol/L (21-32); Calcium, Blood 8.2 mg/dL (8.5-10.1); Chloride, Blood 110 mmol/L (98-108); Creatinine, Blood 1.02 mg/dL (0.60-1.20); Glomerular Filtration Rate >60 (60-); Glucose, Blood 110 mg/dL (70-99); Potassium, Blood 4.2 mmol/L (3.5-5.5); Sodium, Blood 141 mmol/L (136-145); Total Protein, Blood 6.9 g/dL (6.4-8.2)
--- NOTE | 2020-08-30 18:34 | NUR ---
SHIFT NOTE PT HAS BEEN RESTING WELL IN BED T/O THE DAY. PT PROVIDED WITH NUMEROUS SNACKS T/O THE DAY. PT REMAINS ON HIS BASELINE O2 OF 7L T/O THE DAY. PT USING URINAL AT BEDISDE W/O ISSUES. HOME CPAP WAS BROUGHT IN BY [facility] TODAY. VSS. ZULETA. DENIES CP. STS BREATHING FEELS BETTER TODAY.
[2020-08-31 04:03] LABS: Hematocrit 41.7 % (37.0-53.0); Mean Corpuscular HGB 33.7 pg (26.0-34.0); Mean Corpuscular HGB Conc 33.6 g/dL (31.5-36.5); Mean Corpuscular Volume 100 fL (80-100); Platelet Count 120 K/mm3 (150-400); RDW Coefficient Variation 14.6 % (11.7-14.2); RDW Standard Deviation 53.6 fL (35.1-46.3); Red Blood Cell Count 4.16 M/mm3 (4.30-5.90); White Blood Cell Count 7.77 K/mm3 (4.00-11.30)
[2020-08-31 04:24] LABS: Anion Gap 7 mmol/L (6-16); Blood Urea Nitrogen 29 mg/dL (8-24); Bun/Creatinine Ratio 27.6 (12.0-20.0); CO2, Blood 26 mmol/L (21-32); Chloride, Blood 105 mmol/L (98-108); Creatinine, Blood 1.05 mg/dL (0.60-1.20); Glomerular Filtration Rate >60 (60-); Glucose, Blood 99 mg/dL (70-99); Magnesium, Blood 2.1 mg/dL (1.6-2.4); Potassium, Blood 3.8 mmol/L (3.5-5.5); Sodium, Blood 138 mmol/L (136-145)
--- NOTE | 2020-08-31 06:18 | NUR ---
SHIFT SUMMARY PATIENT IS FOUND TO BE A&OX4. GEN WEAKNESS NOTED. ON HOME DOSE OF 7LNC SATING LOW 90'S. NO DISTRESS NOTED. CPAP AT BEDSIDE FOR SLEEP. SR/SB ON THE MONITOR. NO CP NOTED. TRACE DIGNA EDEMA TO BLE. TOELRATING REG DIET. VOIDING WELL PER URINAL. NO PAIN OR DISTRESS NOTED UPON ASSESSMENT. MOVES SELF WELL IN BED BUT NOT GETTING UP IN ROOM WELL QUITE YET. FALL PRECAUTIONS IN PLACE. WILL CONTINUE TO MONITOR UNTIL REPORT GIVEN TO LINK RN.
--- NOTE | 2020-08-31 18:08 | NUR ---
SHIFT NOTE PT HAS BEEN RESTING WELL IN BED T/O THE DAY. DENIES CP OR SOB. GREAT IMPROVEMENT OF EDEMA T/O THE LAST TWO SHIFTS. LS ARE COARSE AND DIM T/O, IMPROVED FROM COARSE WHEEZES NOTED T/O YESTERDAY. BP ARE IMPROVED FROM LAST SHIFT. VSS. OTHERWISE NO ACUTE CHANGES THIS SHIFT.
[2020-09-01 05:41] LABS: Anion Gap 6 mmol/L (6-16); Blood Urea Nitrogen 30 mg/dL (8-24); CO2, Blood 29 mmol/L (21-32); Chloride, Blood 105 mmol/L (98-108); Glomerular Filtration Rate >60 (60-); Glucose, Blood 89 mg/dL (70-99); Magnesium, Blood 2.3 mg/dL (1.6-2.4); Potassium, Blood 3.9 mmol/L (3.5-5.5); Sodium, Blood 140 mmol/L (136-145)
--- NOTE | 2020-09-01 05:49 | NUR ---
SHIFT SUMMARY PATIENT IS A&OX4 AND QUITE CRANKY AT TIMES. VSS. NSR ON THE MONITOR. ON HOME DOSE OF 7LNC. REFUSED CPAP OVERNIGHT. VOIDING WELL PER URINAL WITH GOOD OUTPUT. STILL NO BM AND PATIENT ABDOMEN MOD DISTENDED. REFUSED ANY PRN FOR OVERNIGHT AND STATES IS NORMAL FOR HIM. NO PAIN OR DISTRESS NOTED UPON ASSESSMENT. SWELLING TO BLE NOW ONLY TRACE. NO ACUTE CONCERNS AT THIS TIME. WILL CONTINUE TO MONITOR UNTIL REPORT GIVEN TO LINK GAN.
--- NOTE | 2020-09-01 10:35 | NUR ---
PT PLEASANT THIS AM. DENIES PAIN. STATES DID JUST HAVE EXTRA LARGE BM. FEELING BETTER. A/O X3 . H/R REG, NO MURMER NOTED. PER TELE NSR AT 75, BBB. LUNGS EXP WHEEZES T/O. PRESENTLY ON 9L O2L DR NOTIFIED IN ROOM. WILL BE DISCHARGING. BT HYPO. LAST BM TOYDA. VOIDS URINAL. SBA TO BATHROOMM. BED IN LOW POSITION, CALL LITE IN REACH, CALLS APPROP. PT TO TALK TO DAUGHTER FOR DISCHARGE.
[2020-09-01] MEDS ORDERED: MIRALAX17 GM PO (10:54)
[2020-09-01] MEDS ORDERED: SPIR25 PO (10:55)
[2020-09-01] MEDS ORDERED: TORSE20 PO (10:56)
--- NOTE | 2020-09-01 11:56 | NUR ---
DISCHARGE REVIEWED WITH PT. HE VERBALIZED UNDERSTANDING MEDS AND INST. IV PULLED INTACT. HANDED PT RX FOR B/P MACHINE. PEND RIDE.
--- NOTE | 2020-09-01 12:23 | NUR ---
TELE REMOVED. CAREY AT PICKUP. AIDE WHEELED PT TO DOOR AT 1223
== END 2020-09-01 12:25 | disposition home or self-care (01) | DRG 291 ==
LOC: ER 15:09 → ERHOLD 17:25 → PCU 17:25
PROVIDERS: Internal Medicine; Physician Assistant; ADMIT Internal Medicine
DX: I50.33 Acute on chronic diastolic (congestive) heart failure (principal); J96.21 Acute and chronic respiratory failure with hypoxia; J84.9 Interstitial pulmonary disease, unspecified; N40.0 Benign prostatic hyperplasia without lower urinary tract symptoms; I07.1 Rheumatic tricuspid insufficiency; F32.9 Major depressive disorder, single episode, unspecified; J44.9 Chronic obstructive pulmonary disease, unspecified; K21.9 Gastro-esophageal reflux disease without esophagitis; J84.10 Pulmonary fibrosis, unspecified; G47.33 Obstructive sleep apnea (adult) (pediatric); I27.20 Pulmonary hypertension, unspecified; Z99.81 Dependence on supplemental oxygen; Z79.899 Other long term (current) drug therapy
CPT/HCPCS: 36415; 71046; 80048; 80053; 83735; 83880; 84484; 85025; 85027; 93005; 93010; 94640; 94664; 94762; 96374; 99285-25; A9270; J1650; J1940

== ENCOUNTER 2020-09-27 15:46 | Emergency (ER) | payer OTHER ==
[~2020-09-27] VITALS: Ht 182.9 cm; Wt 83.5 kg
[~2020-09-27 15:46] MED LIST changes: +MIRALAX17 GM PO; +SPIR25 PO
[2020-09-27 16:06] LABS: BASOPHILS ABSOLUTE AUTO 0.07 K/mm3 (0.00-0.23); BASOPHILS PERCENT AUTO 1 % (0-2); EOSINOPHILS ABSOLUTE AUTO 0.24 K/mm3 (0.00-0.68); EOSINOPHILS PERCENT AUTO 3 % (0-6); Hematocrit 44.1 % (37.0-53.0); Hemoglobin 14.4 g/dL (13.5-17.5); IMMATURE GRAN ABSOLUTE AUTO 0.01 K/mm3 (0.00-0.10); IMMATURE GRAN PERCENT AUTO 0 % (0-1); LYMPHOCYTES PERCENT AUTO 10 % (21-46); MONOCYTES ABSOLUTE AUTO 0.81 K/mm3 (0.16-1.47); MONOCYTES PERCENT AUTO 10 % (4-13); Mean Corpuscular HGB 32.9 pg (26.0-34.0); Mean Corpuscular HGB Conc 32.7 g/dL (31.5-36.5); Mean Corpuscular Volume 101 fL (80-100); Mean Platelet Volume 10.9 fL (9.1-12.4); NEUTROPHILS ABSOLUTE AUTO 5.92 K/mm3 (1.96-9.15); NEUTROPHILS PERCENT AUTO 75 % (41-73); Platelet Count 105 K/mm3 (150-400); RDW Coefficient Variation 14.8 % (11.7-14.2); RDW Standard Deviation 55.6 fL (35.1-46.3); Red Blood Cell Count 4.38 M/mm3 (4.30-5.90); White Blood Cell Count 7.85 K/mm3 (4.00-11.30)
[2020-09-27 16:40] LABS: Alanine Aminotransfer (ALT/SGP 26 U/L (12-78); Albumin, Blood 3.3 g/dL (3.4-5.0); Albumin/Globulin Ratio 0.7 (0.8-1.8); Alk Phos 228 U/L (50-136); Anion Gap 8 mmol/L (6-16); Aspartate Aminotrans (AST/SGOT 43 U/L (12-37); Bilirubin, Total 3.9 mg/dL (0.1-1.0); Blood Urea Nitrogen 23 mg/dL (8-24); Bun/Creatinine Ratio 21.3 (12.0-20.0); CO2, Blood 22 mmol/L (21-32); Calcium, Blood 8.8 mg/dL (8.5-10.1); Chloride, Blood 108 mmol/L (98-108); Creatinine, Blood 1.08 mg/dL (0.60-1.20); Globulin, Blood 4.5 g/dL (2.2-4.0); Glomerular Filtration Rate >60 (60-); Glucose, Blood 81 mg/dL (70-99); Potassium, Blood 4.7 mmol/L (3.5-5.5); Sodium, Blood 138 mmol/L (136-145); Total Protein, Blood 7.8 g/dL (6.4-8.2); Troponin I <0.015 ng/mL (0.000-0.040)
== END 2020-09-27 19:05 | disposition home or self-care (01) ==
LOC: ER 15:46
PROVIDERS: Emergency Medicine
DX: R60.0 Localized edema (principal); J44.9 Chronic obstructive pulmonary disease, unspecified; K21.9 Gastro-esophageal reflux disease without esophagitis; Z91.14 Patient's other noncompliance with medication regimen; Z79.899 Other long term (current) drug therapy; Z87.891 Personal history of nicotine dependence
CPT/HCPCS: 71045; 80053; 83880; 84484; 85025; 93005; 93010; 99284-25

== ENCOUNTER 2020-10-22 12:47 | Emergency (ER) | payer OTHER, MEDICARE ==
[~2020-10-22] VITALS: Ht 182.9 cm; Wt 81.7 kg
[2020-10-22 13:19] LABS: BASOPHILS ABSOLUTE AUTO 0.07 K/mm3 (0.00-0.23); BASOPHILS PERCENT AUTO 1 % (0-2); EOSINOPHILS ABSOLUTE AUTO 0.25 K/mm3 (0.00-0.68); EOSINOPHILS PERCENT AUTO 3 % (0-6); Hematocrit 47.8 % (37.0-53.0); Hemoglobin 15.5 g/dL (13.5-17.5); IMMATURE GRAN ABSOLUTE AUTO 0.03 K/mm3 (0.00-0.10); IMMATURE GRAN PERCENT AUTO 0 % (0-1); LYMPHOCYTES ABSOLUTE AUTO 0.68 K/mm3 (0.84-5.20); LYMPHOCYTES PERCENT AUTO 7 % (21-46); MONOCYTES ABSOLUTE AUTO 1.06 K/mm3 (0.16-1.47); MONOCYTES PERCENT AUTO 11 % (4-13); Mean Corpuscular HGB 33.5 pg (26.0-34.0); Mean Corpuscular HGB Conc 32.4 g/dL (31.5-36.5); Mean Corpuscular Volume 103 fL (80-100); Mean Platelet Volume 10.8 fL (9.1-12.4); NEUTROPHILS ABSOLUTE AUTO 7.78 K/mm3 (1.96-9.15); NEUTROPHILS PERCENT AUTO 79 % (41-73); Platelet Count 128 K/mm3 (150-400); RDW Coefficient Variation 15.4 % (11.7-14.2); RDW Standard Deviation 58.5 fL (35.1-46.3); Red Blood Cell Count 4.63 M/mm3 (4.30-5.90); White Blood Cell Count 9.87 K/mm3 (4.00-11.30)
[2020-10-22 13:37] LABS: Alanine Aminotransfer (ALT/SGP 20 U/L (12-78); Albumin, Blood 3.3 g/dL (3.4-5.0); Albumin/Globulin Ratio 0.7 (0.8-1.8); Alk Phos 231 U/L (50-136); Anion Gap 6 mmol/L (6-16); Aspartate Aminotrans (AST/SGOT 29 U/L (12-37); Blood Urea Nitrogen 23 mg/dL (8-24); Bun/Creatinine Ratio 23.8 (12.0-20.0); CO2, Blood 22 mmol/L (21-32); Calcium, Blood 8.5 mg/dL (8.5-10.1); Chloride, Blood 111 mmol/L (98-108); Creatinine, Blood 0.97 mg/dL (0.60-1.20); Globulin, Blood 4.7 g/dL (2.2-4.0); Glomerular Filtration Rate >60 (60-); Glucose, Blood 114 mg/dL (70-99); Potassium, Blood 4.2 mmol/L (3.5-5.5); Sodium, Blood 139 mmol/L (136-145); Troponin I <0.015 ng/mL (0.000-0.040)
[2020-10-22 14:05] LABS: SARS-Cov-2 (COVID-19) PCR, MMC NEGATIVE (NEGATIVE)
--- NOTE | 2020-10-22 15:58 | NUR ---
75 year old male to the ED this afternoon for swelling in the legs. Pt's medical history and comorbidities include: Diastolic CHF, Chronic Hypoxic Respiratory Failure, Severe COPD, Insterstitial Lung Disease, Severe Pulmonary HTN, Sleep Apnea, Severe Tricuspid Regurgitation, Depression, and GERD. Joint Pt visit with Dr Smith and this RN. Dr Smith discusses condition with Pt and consideration of hospice. This RN provided gentle education on hospice philosophy with V/U made by Pt. Pt is agreement with hospice services and reports no preference for hospice agencies. Pt currently on [address] Smith reporting baseline is 7 L O2. Pt reports living with his daughter who is supportive of his needs. He also reports having a lady friend who is available to assist with needs. Pt has had multiple ED and hospital stays in the last 6 months. Spoke with [facility] and they report ability to admit Pt onto services this evening or tomorrow at the latest. Spoke with ED [facility] Operator Irineo and discussed case. Irineo will fax required documents to [facility]. Dr Smith writes prescriptions for comfort medication Pt can take home with him. Called and spoke with Pt's daughter Samantha. Engaged in therapeutic conversation regarding goals of care and Pt's decision for hospice. Samantha appears to be in agreement. PPS 50% NYHA Class 4 Pt appears appropriate for hospice services. Palliative Care will remain available.
== END 2020-10-22 16:40 | disposition home or self-care (01) ==
LOC: ER 12:47
PROVIDERS: Emergency Medicine; Physician Assistant
DX: J96.21 Acute and chronic respiratory failure with hypoxia (principal); I50.32 Chronic diastolic (congestive) heart failure; J44.9 Chronic obstructive pulmonary disease, unspecified; Z99.81 Dependence on supplemental oxygen; I27.20 Pulmonary hypertension, unspecified; J84.10 Pulmonary fibrosis, unspecified; G47.33 Obstructive sleep apnea (adult) (pediatric); Z51.5 Encounter for palliative care; Z79.899 Other long term (current) drug therapy; Z87.891 Personal history of nicotine dependence; Z20.822 Contact with and (suspected) exposure to COVID-19
CPT/HCPCS: 36415; 71046; 80053; 83690; 83880; 84484; 85025; 93005; 93010; 96374; 99285-25; A9270; U0004